=== PATIENT | male | born 1975 | race Caucasian/White ===

== ENCOUNTER 2017-01-19 15:39 | Emergency (ER) | payer MEDICAID, OTHER ==
[~2017-01-19] VITALS: Ht 172.7 cm; Wt 129.3 kg
[~2017-01-19 15:39] MED LIST: /CELE20CA OR; /WARF25TA OR; ACET65TA OR; CIPR500T89 PO; FLAG500T PO; METH2.5TA PO; PERC5TAB8 OR; PRED10TA PO
[2017-01-19] MEDS ORDERED: CALC600T6 PO (16:10)
[2017-01-19] MEDS ORDERED: LEFL1TAB4 PO (16:10)
[2017-01-19] MEDS ORDERED: BUPR75TA5 PO (16:10)
[2017-01-19] MEDS ORDERED: PRED5TA PO (16:10)
[2017-01-19] MEDS ORDERED: OMEP20CA3 PO (16:10)
[2017-01-19] MEDS ORDERED: FOLI1TAB2 PO (16:10)
[2017-01-19] MEDS ORDERED: CLINDAMYCIN 150 MG CAP PO ONE (16:45)
[2017-01-19 17:06] LABS: BASO % 0.5 % (0.0-1.0); EOS # 0.4 K/mm3 (0.0-0.50); EOS % 3.6 % (0.0-3.0); LARGE UNSTAINED CELL # 0.1 K/mm3 (0.0-0.4); LARGE UNSTAINED CELL % 1.4 % (0.0-4.0); LYMPH # 1.6 K/mm3 (1.5-4.5); LYMPH % 14.2 % (24.0-44.0); MEAN CORPUSCULAR HEMOGLOBIN 30.1 pg (27.0-33.0); MEAN CORPUSCULAR HGB CONC 35.1 g/dl (32.0-36.5); MEAN CORPUSCULAR VOLUME 85.6 fl (80.0-96.0); MONO # 0.5 K/mm3 (0.0-0.8); MONO % 4.6 % (0.0-5.0); NEUTROPHILS # 8.1 K/mm3 (1.8-7.7); NEUTROPHILS % 75.7 % (36.0-66.0); PLATELET COUNT, AUTOMATED 165 k/mm3 (150-450); RED CELL DISTRIBUTION WIDTH 13.7 % (11.5-14.5); WHITE BLOOD COUNT 10.6 K/mm3 (4.0-10.0)
[2017-01-19 17:12] LABS: INR 0.99
[2017-01-19 17:26] LABS: ANION GAP 7 MEQ/L (8-16); BLOOD UREA NITROGEN 9 MG/DL (7-18); CALCIUM LEVEL 8.2 MG/DL (8.5-10.1); CARBON DIOXIDE LEVEL 25 MEQ/L (21-32); CHLORIDE LEVEL 110 MEQ/L (98-107); CREATININE FOR GFR 0.87 MG/DL (0.70-1.30); GLOMERULAR FILTRATION RATE > 60.0 (>60); GLUCOSE, FASTING 86 MG/DL (70-105); POTASSIUM SERUM 3.8 MEQ/L (3.5-5.1); SODIUM LEVEL 142 MEQ/L (136-145)
[2017-01-19] MEDS ORDERED: CLEO300C2 PO (17:37)
[2017-01-19 17:48] VITALS: BP 147/98
--- NOTE | 2017-01-19 18:00 | REP ---
LEFT LOWER EXTREMITY DUPLEX VEINS: HISTORY: Swelling. There are no filling defects in the deep venous system. The deep venous system is patent. IMPRESSION: There is no deep venous thrombosis. Signed by Kirt Grover MD 01/19/2017 06:50 P
== END 2017-01-19 17:50 | disposition home or self-care (01) ==
LOC: M ED 16:31
DX: I73.9 Peripheral vascular disease, unspecified (principal); I87.8 Other specified disorders of veins; L03.116 Cellulitis of left lower limb

== ENCOUNTER 2018-02-18 23:43 | Emergency (ER) | payer OTHER ==
[2018-02-19 01:52] LABS: CARBOXYHEMOGLOBIN 3.2 % (0.0-1.5)
[2018-02-19 01:52] LABS: BASO % 0.2 % (0.0-1.0); EOS % 0.1 % (0.0-3.0); HEMATOCRIT 48.3 % (42.0-52.0); HEMOGLOBIN 16.3 g/dl (13.5-17.5); IMMATURE GRANULOCYTE % 0.4 % (0-3.0); LYMPH # 0.8 10^3/uL (1.5-4.5); LYMPH % 5.7 % (24.0-44.0); MEAN CORPUSCULAR HEMOGLOBIN 29.8 pg (27.0-33.0); MEAN CORPUSCULAR HGB CONC 33.7 g/dl (32.0-36.5); MEAN CORPUSCULAR VOLUME 88.3 fl (80.0-96.0); MONO # 0.6 10^3/uL (0.0-0.8); MONO % 4.4 % (0.0-5.0); NEUTROPHILS # 12.2 10^3/uL (1.8-7.7); NEUTROPHILS % 89.2 % (36.0-66.0); PLATELET COUNT, AUTOMATED 150 10^3/uL (150-450); RED BLOOD COUNT 5.47 10^6/uL (4.30-6.10); RED CELL DISTRIBUTION WIDTH 13.4 % (11.5-14.5); WHITE BLOOD COUNT 13.7 10^3/uL (4.0-10.0)
[2018-02-19 02:12] LABS: ANION GAP 8 MEQ/L (8-16); BLOOD UREA NITROGEN 11 MG/DL (7-18); CALCIUM LEVEL 8.6 MG/DL (8.5-10.1); CARBON DIOXIDE LEVEL 26 MEQ/L (21-32); CHLORIDE LEVEL 109 MEQ/L (98-107); CREATININE FOR GFR 1.03 MG/DL (0.70-1.30); GLOMERULAR FILTRATION RATE > 60.0 (>60); GLUCOSE, FASTING 105 MG/DL (70-100); POTASSIUM SERUM 4.3 MEQ/L (3.5-5.1); SODIUM LEVEL 143 MEQ/L (136-145)
[2018-02-19] MEDS: MORPHINE 2 MG/ML 1ML SYRINGE (J2270) IV (02:15)
[2018-02-19 02:22] LABS: ERYTHROCYTE SEDIMENTATION RATE 5 mm/hr (0-15)
[2018-02-19] MEDS: HYDROmorphone HCL 1 MG/ML SYRINGE (J1170) IV ×2 (04:50→06:24)
[2018-02-19 05:38] LABS: CSF TUBE# GLU TUBE 3; CSF TUBE# TP TUBE 3; GLUCOSE CSF 69 MG/DL (40-75); TOTAL PROTEIN,CSF 69.2 MG/DL (15-45)
[2018-02-19] MEDS: KETOROLAC 30 MG/ML VIAL (J1885) IV (05:42)
[2018-02-19 05:46] LABS: CSF RBC < 2 10^3/uL (<2)
[2018-02-19 05:47] LABS: APPEARANCE, CSF CLEAR (CLEAR); COLOR, CSF COLORLESS (COLORLESS); CSF DIFF IF INDICATED? NO (NO); CSF TUBE# CELL CNT TUBE 1; CSF WBC 2 /uL (0-10)
[2018-02-19 05:48] LABS: APPEARANCE, CSF CLEAR (CLEAR); COLOR, CSF COLORLESS (COLORLESS); CSF DIFF IF INDICATED? NO (NO); CSF RBC < 2 10^3/uL (<2); CSF TUBE# CELL CNT TUBE 1; CSF WBC 1 /uL (0-10)
[2018-02-19] MEDS: AMPICILLIN SOD/SULBACTAM SOD 3 GM in D5W MINI-BAG PLUS 100 ML IV (06:30)
== END 2018-02-19 07:12 | disposition home or self-care (01) ==
LOC: M ED 23:43
DX: G43.909 Migraine, unspecified, not intractable, without status migrainosus (principal); L03.115 Cellulitis of right lower limb; M06.9 Rheumatoid arthritis, unspecified; G89.29 Other chronic pain; F43.21 Adjustment disorder with depressed mood; Z79.899 Other long term (current) drug therapy
CPT/HCPCS: J1170

== ENCOUNTER 2021-07-09 00:08 | Emergency (ER) | payer OTHER, SELFPAY ==
[~2021-07-09] VITALS: Ht 175.3 cm; Wt 127.3 kg
[~2021-07-09 00:08] MED LIST changes: -/CELE20CA OR; -/WARF25TA OR; +AMIT10TA7; +AUGM500T34 PO; +BUPR75TA5 PO; +CALC600T17 PO; +CELE1CAP4 OR; +CIPR-249 PO; -CIPR500T89 PO; +CLEO300C2 PO; +COUM1TAB18 OR; +FOLI1TAB11 PO; +HUMI40KI; +LEFL1TAB4 PO; +METH2.5T48 PO; -METH2.5TA PO; +OMEP1CAP73 PO; +PRED-351 PO; -PRED10TA PO; +PRED5TA PO; +SUMA5SPR
--- OUTSIDE RECORDS SUMMARY | 2021-07-09 00:18 | CCD | Clinical Summary ---
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 ;; 05/07 good this visit and last;; will observe Depression 06/30/2017 - 12:00AM Camilo Broderick MD Act siria Note: Greiving the loss of h is pre disease life of productive activity but increasingly coming to terms with his limitations and adapting to enjoying life with much more limited physical capacity. Admits to 'black thoughts' but decreasingly and better able to control and stay ahead of them.;; 08/06 gradually improving- good wt loss - got a puppy which is a huge challenge but turning out positive. Encouraged to get YouTube presence going to share his struggles and humor with others who could benefit. Rheumatoid Arthritis 06/09/2016 - 12:00AM Camilo ko MD Active Note: did great until 2007- [employer], travel, jogging and soccer;;; then developed pain in hips and surgery left 2011;; dx 2013 [facility] rheumatology but poor progress so gave up after cortisone injections, orthotics made, multiple meds; most recently methotrexate stopped changed to ARAVA (leflunamide) today at dr manzano due to headache and ? contributed to diverticulitis and didnt work well. 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 ;;; 09/20/16 dr vale [facility] eval severe progressive rheumatoid arthritis in patient previously healthy, athletic, and productive who has tried extremely hard to stay as functional as possible but is failing and the disease is progressing with increasing pain and decreasing function. P: handicapped parking tag initiated;; refer to another [employer] airspace control officer as not feeling supported or understood in current setting. ;; walks very stiffly, cannot reach hair or face with hands due to joint stiffness; left (dominant) hand function very limited by stiffness and pain in wrist and elbow. Function form done for SSD application- unable to use cane due to poor hand function and has fallen multiple times on minor unevenness eg a fold in a towel on the floor. Person who lives with him does all the shopping and cooking and even feeds him and brushes teeth as cant reach his mouth or wipe his own bottom after bowel movement. 11/09/16 Slowly progressive disease and decreaosing function. Form done today for disability- focussed on fibrmyalgia issues though that is really a minor part of his symptom complex. The worst of it continues to be joint stiffness and pain such that he is very clearly permanently disabled from any productive employment. Referral in [place] to another [employer] airspace control officer didnt work out apparently for insurance reasons so will try for buddy fuentes which will be much closer for him as well. [address] veloz. We are looking into genetics eval at [facility] as 35 yo autistic sister just had high methylmalonic acid level with normal b12 though she had developmental w/u in the past at age 1 at [facility]. 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 Mom notes that dad was spraying atrazine for [employer] at the time Quevedo two younger siblings were conceived though not when he was.;; 12/20/16 some better lately; on bupropion plus leflunimide and 15 mg/day prednisone. P: add naproxen 250 mg twice daily. 04/05 Joints are still causing a lot of pain. He takes 15 mg of prednisone daily, down from 20mg. Occassionally takes naproxen 250mg, but it does not help much. Movement is restricted due to joint pain. Has not seen rheumotologist since june 2016, would like to change which one he is seeing. 06/29/17 pain and joint restrictions continue;; has finally gotten a rheumatology appt though not for 4 months. Joined a gym to maximize exercise but walking on treadmill caused gastrocnemius tear since his normal gait off treadmill is shuffling and necessar rajat involves less range of motion. He can resume but take care to go VERY slowly and gently with everything. Weight not coming down on prednisone and limited activity despite trying really hard. Encouraged to focus on function and actvity and avoid gaining weight but not expect himself to also diet and lose weight for now. Continue to use the lowest effective prednisone dose. Flu shot today despite being on some prednisone.;; 01/16/18 has had 2 huimira shots now plue still on leflunamide and 15 mg prednisone. Excellent diet and gardening; much better mental health and wt loss continues. 05/01/18 Pain has been worse in the last month. Now having pain in his neck and down between his shoulders. Right thumb is also locking up and causing him to drop things frequently. Sees rhuematology in a couple of weeks to discuss changes in medication.;; 08/07/18 still bad - agrees to keep rheumatology appts as med change may be helpful at some point. [facility] may be a good primary care approach after February when I retire. ;;; 01/05 Reports shooting pains in right fingers that mimick neuropathic pain felt after hip surgery in the past - likely RA related. Still following rheumatology for medication management. May opt [facility] after I retire. Past Visits Onset Date - Time Resolved Date - Time Provider Co ndition Status Migraine Headache 12/20/2016 - 12:00AM Camilo Sanchez Active Note: avoiding caffeine well already;; try naproxen 250 mg bid for headache;; monosodium glutamate is another possible trigger. Watch for other triggers and minimize stress as that is also a trigger. 04/05 Has had some "bad ones" this month. More days in a month where head hurts than when it doesn't. Migraines first started in 1997, but these headaches are not the same as those headaches. These do make him nauseas, vomit. He does experience photophobia and osmophobia. Prefers a dark and cold space to recover. Never tried any preventive medicine or triptans. Neck and back feel very tight constantly. Pt: we will prescribe Amitriptyline 10mg once daily to start as well as sumatriptan prn ;;; 01/16/18 still 1 to 4 with vomiting lasting 18 hrs despite amitriptyline; sumatriptan not helping;; P: riboflavin 100 mg daily;; try theracane to self massage trigger points in neck, ;; 05/01/18 also on magnesium- neuro referral as still severe and frequent headaches. Plan of Treatment Care Programs Case Management Cardiovascular / Respiratory Future Appointments Date Time Location Provider Medication Follow-up 07/08/2021 10:30AM [facility] Vale Ibrahim NP H Adult Prophy 10/26/2021 2:45PM [facility] Erin jefferson [facility] Future Tests Order Diagnosis Results Due Ordering Provid er Care Management Care Mgmt: Hypertension Essential (primary) hype rtension 02/18/21 Vale Ibrahim NP [id number] - *Revisit Acute Acute Follow-up [facility] Major depressive disorder, single episode, unspecified 05/27/21 Vale Ibrahim IRRIGATION SUPERVISOR Visit Summary - Standard Visit Visit Summary Standard Visi t Major depressive disorder, single episode, unspecified 05/27/21 Vale Ibrahim NP - Instructions for patient - Return to the clinic if condition wors ens or new symptoms arise - Follow-up visit Assessments Includes: Assessments from this encounter - Hypertension - Rheumatoid arthritis - Depression - Generalized anxiety disorder See updated problem list for history/discussion/assessment and plan for today's problems. See also health tab and appropriate flow sheets. Instructions Includes: Instructions from this encounter Instructions to patient Instructions for patient Education and Decision Aids were provide d during visit for: Patient appeared to understand therapeut ic regimen Medical Equipment - Implanted Devices Includes: Current DevicesNo Medical Equipment Recorded Medications Includes: Medications discussed during this encounter and other current Medicati ons Discontinued / Stopped on this date Vale Ibrahim NP on 02/18/2021 Amitriptyline HCl 10 MG Oral Tablet Prov ider: Vale Ibrahim NP Diagnosis: Migraine w/o aura, n ot intractable, w/o status migrainosus Losartan Potassium 50 MG Oral Tablet Pro vider: Vale Ibrahim NP Diagnosis: Essential (primary) hypertension New / Renewed during this visit Vale quintero NP on 05/27/2021 Losartan Potassium 100 MG Oral Tablet Pr ovider: Vale Ibrahim NP 30 day supply: 30 tablet, 5 refills Diagnosis: Ess ential (primary) hypertension once a day- dose increased Pharmacy: [id number] - [id number] , [facility], [id number] hydrOXYzine HCl 25 MG Oral Tablet Provid er: Vale Ibrahim NP 30 day supply: 120 tablet, 1 refills Diagnosis: Ge neralized anxiety disorder as directed 1-2 tabs every 4-6 hours as needed Pharmacy: [id number] - [id number] , [facility], [id number] - DULoxetine HCl 30 MG Oral Capsule Delayed Release Particles Provider: Vale Ibrahim NP 30 day supply: 30 capsule, 5 refills Diagnosis: [place] depressive disorder, single episode, unspecified once a day Pharmacy: [facility] - [id number] , [facility], [id number] - Current Medications (continue as prescribed) buPROPion HCl 75 MG Oral Tablet 05/05/2021 Provider : Vale Ibrahim NP Diagnosis: Major depressive dis order, single episode, unspecified twice a day predniSONE 5 MG Oral Tablet 04/20/2021 Provider: Vale Ibrahim NP Diagnosis: Rheu arthritis w rhe u factor of l wrist w/o org/sys involv 3 once a day Riboflavin 100 MG Oral Capsule 02/16/2020 Provider: Vale Ibrahim NP Diagnosis: Migraine w/o aura, n ot intractable, w/o status migrainosus once a day Caltrate 600+D3 Soft 600-800 MG-UNIT Oral Tablet Chewable Provider: Vale Ibrahim NP Diagnosis: once daily Folic Acid 1MG Oral Tablet 12/11/2018 Provider: Camilo Broderick MD Diagnosis: Rheu arthritis w rhe u factor mult site w/o org/sys involv once a day Leflunomide 20MG Oral Tablet 05/01/2018 Provider: Camilo Broderick MD Diagnosis: Rheu arthritis w rhe u factor mult site w/o org/sys involv once a day Naproxen 250MG Oral Tablet 12/20/2016 Provider: Camilo Broderick MD Diagnosis: Rheu arthritis w rhe u factor of l wrist w/o org/sys involv twice a day 1 tab po BID PRN pain - azeem e with food avoid if stomach irritation;; take omeprazole daily before food Medications Administered Includes: Administered Medications from this encounterNo Administered Medications Recorded Vital Signs Includes: Vital Signs from this encounter Vital Name 05/27/2021 05:12P 05/27/2021 04:05P Blood Pressure Sitting L 146/90 158/88 BP Cuff Size Large Pulse Rate-Sitting (bpm) 81 Pulse Rhythm Regular Respiration Rate (breaths/min) 18 Temp-Temporal 97.2 Weight (lb) 283 Oxygen Saturation (%) 98 Results Includes: Results discussed during this encounterNo Results Recorded For Specified Dates History of Present Illness Includes: History of Present Illness from this encounter Eriberto Augustine is a 46 year old male. - Allergy list reviewed - Medication reconciliation performed - Medication list reviewed with patient and updated in EMR - No headache - No epistaxis - No chest pain or discomfort - No dyspnea - Dizziness only when really tired - No sleep disturbances - - No request for consultation by special ist - Compliance with treatment - No previous emergency room visit Eriberto is a 46-year-old male presenting to the office today for a follow-up on his chronic conditions. He reports that today, his chronic rheumatoid pain is at its baseline- denies an active flare. He reports his pain today is primarily stemming from a throbbing, frontal headache. He has a history of migraines and reports this is not migraine in nature. He typically just uses temporal massages, cool washcloths, and dark rooms to alleviate headaches, which is his plan for this headache. Eriberto reports that his anxiety is at the point where he admits he needs help. He reports he feels anxious all the time- constantly clenching jaw/whole body and is not sleeping well. He constantly has financial worries and feels guilty that he feels so down about his life/chronic pain. He does not want to be a burden to his family and thinks about this all the time; he also admits to thinking about his "past life" where he was a very active man in the . He denies SI and HI. He has a supportive significant other with him today. Based on an extensive conversation with Eriberto, it is clear that his anxiety is significantly impacting his quality of life and he would like to seek pharmacological help- has not had good success with mental health counselors due to being private and does not wish to go down that route at this time. Plan to start hydroxyzine PRN, which will help with altered sleep and anxiety. Eriberto confirmed he stopped taking amitriptyline because it "did nothing." Plan to st art duloxetine since it helps with anxiety/ depression as well as chronic pain. Eriberto is agreeable to this plan and is very hopeful that it will help improve his quality of life. Eriberto's BP in office today is elevated. His at-home BP log shows SBP consistently in 150s/160s and elevate DBP. WIll increase amlodipine (he denies adverse side effects with this new medication). Hopeful that if we can better manage his anxiety and chronic pain, BP will subsequently improve. Eriberto denies chest pain/pressure/squeezing/tightness/palpitations. He denies SOB. Denies N/V/D, heartburn, black/bloody stools. Will see back for follow-up in 4-6 weeks, sooner if needed. Total time spent on patient encounter: 45+ minutes Social History Description Last Updated No secondhand cigarette smoke exposure 05/27/2021 Smoking status 05/27/2021 : Former smoker 05/27/2021 Procedures and Surgical History Includes: Procedures from this encounter Procedures Code Diagnosis Performing Provider Service Location Service Date continue current medication except where otherwise no dain medical regimen review Clinical summary provided to patient Clinical summary provided to patient Summary provided electronically in CCDA format & reasonable certainty of receipt Surgical History Last Updated History of orthopedic surgery left hip replacement 05/27/2021 Medical History Includes: Medical History addressed during this encounterNo Medical History Recorded Family History Includes: Family History addressed during this encounter Description Last Updated Family history of cancer No family history of colon o r prostate cancer 05/27/2021 Review of Systems Includes: Review of Systems from this encounter Systemic: Not feeling poorly (malaise). No fever, no chills, and no night sweats. Head: No headache and no sinus pain. Neck: No neck pain. Eyes: No vision problems. Otolaryngeal: No earache, no nasal discharge, and no hoarseness. Cardiovascular: No chest pain or discomfort, no palpitations, and the heart rate was not fast. Pulmonary: No dyspnea, not during exertion, and not nocturnal; causing awakening from sleep. No cough, no hemoptysis, and no wheezing. Gastrointestinal: Normal appetite and no heartburn. No nausea, no vomiting, no abdominal pain, and no melena. No diarrhea. Genitourinary: No dysuria. Endocrine: No excessive sweating. Musculoskeletal: As a chronic condition. Neurological: No dizziness and no motor disturbances. Psychological: Anxiety, depression, and sleep disturbances. Skin: No rash. Mental Status Includes: Mental Status from this encounter Description Oriented to time, place, and person Anxiety Depression Functional Status Includes: Functional Status from this encounterNo Functional Status Recorded Physical Exam Includes: Physical Exam from this encounter Skin: -the skin color and pigmentation were normal -the skin general appearance was normal Eyes: -the conjunctiva exhibited no abnormalities -the extraocular movements were normal Ears, Nose, Throat: -no external nose deformities -no nasal discharge seen -the oropharynx was normal Neck: -the neck demonstrated no decrease in suppleness -the thyroid showed no abnormalities -no cervical mass was seen -No carotid bruits Lymph Nodes: -the supraclavicular lymph nodes were not enlarged -no adenopathy Lungs: -normal breath sounds/voice sounds -no wheezing was heard -no rhonchi were heard -no rales/crackles were heard Cardiovascular System: -no murmurs were heard -no pitting edema -heart rate and rhythm normal -no bradycardia present -no tachycardia present Abdomen: -the bowel sounds were normal -abdominal non-tender Psychiatric Exam: -the affect was normal Head: -no evidence of a head injury -the head was normocephalic Neurological System: -oriented to time, place, and person -oriented to time, place, and person General Status: -in no acute distress -well developed -well nourished Musculoskeletal System: -overall findings were normal Vital Signs: -current vital signs reviewed Immunizations Includes: Immunizations addressed during this encounterNo Immunizations Recorded Allergies Includes: Active AllergiesNo Known Allergies Encounters Encounter Provider Location Date Check-In Time Check-Out Time D iagnosis Chronic Disease Follow-up Vale Ibrahim IRRIGATION SUPERVISOR [facility] 05/27/2021 3:49PM 5:17PM Generalized Anxiety Disorder, Depression , Hypertension (Systemic), Rheumatoid Arthritis Insurance Includes: Active Insurance Policies Plan Name Member ID Group # Subscriber Relationship Effective Da wang 1 - Medicare Blue Ppo[ Advantage Medicare] [id number] Ri zackery Hazard Self 03/20/2019 - Unknown 2 - D [employer] Bc/bs [id number] Eriberto Augustine Self Advance Directives Includes: Current Advance Directives Directive Pat Aware Third Democrat Effective Date Reviewed Status RHIO Yes 06/05/2016 Current and Ve rified Note: Yes Ebola Screening Performed Yes 10/28/2019 Current and Verified Note: Within the last month, have you traveled outside of the [place]? - NO packet given Pt Bill of Rights, Priv Prac, Ad Dir Yes 09/17/2020 Current and Verified Note: Pt declined AD packet Health Concerns Includes: Health Concerns for current assessments Depression Onset 06/30/2017 Hypertension (systemic) Onset 11/22/2017 Rheumatoid Arthritis Onset 06/09/2016 Goals Includes: Active Goals for current assessments Goal for Rheumatoid Arthritis Added 06/09/2016 by Provider Health Concern: Rheumatoid Arthritis Goal for Depression Added 06/30/2017 by Provider Health Concern: Depression Goal for Hypertension (systemic) Added 11/22/2017 by Provider Health Concern: Hypertension (systemic) Interventions Includes: Interventions for current assessments did great until 2007- [employer], travel, jogg ing and soccer;;; then developed pain in hips and surgery left 2011;; dx 2012 [facility] rheumatology but poor progress so gave up after cortisone injections, orthotics made, multiple meds; most recently methotrexate stopped changed to ARAVA (leflunamide) today at dr manzano due to headache and ? contributed to diverticulitis and didnt work well. Prednisone 15 mg daily continues down from 20 due to methotrexate total now for 6 months now P; recheck in 3mo;; Worked as [employer] and loved it and did well except advancing pain so had to take leave of absence which conitnues now.09/20/16 dr [facility]e [facility] mike severe progressive rheumatoid arthritis in patient previously healthy, athletic, and productive who has tried extremely hard to stay as functional as possible but is failing and the disease is progressing with increasing pain and decreasing function. P: handicapped parking tag initiated;; refer to another [employer] airspace control officer as not feeling supported or understood in current setting.11/09/16 Slowly progressive disease and decreaosing function. Form done today for disability- focussed on fibrmyalgia issues though that is really a minor part of his symptom complex. The worst of it continues to be joint stiffness and pain such that he is very clearly permanently disabled from any productive employment. Referral in to another [employer] airspace control officer didnt work out apparently for insurance reasons so will try for [employer] which will be much closer for him as well. [address] veloz. We are looking into genetics eval at [facility] as 35 yo autistic sister just had high methylmalonic acid level with normal b12 though she had developmental w/u in the past at age 1 at [facility]. 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 Mom notes that dad was spraying atrazine for [employer] at the time Quevedo two younger siblings were conceived though not when he was. 12/20/16 some better lately; on bupropion plus leflunimide and 15 mg/day prednisone. P: add naproxen 250 mg twice daily.04/05 Joints are still causing a lot of pain. He takes 15 mg of prednisone daily, down from 20mg. Occassionally takes naproxen 250mg, but it does not help much. Movement is restricted due to joint pain. Has not seen rheumotologist since june 2016, would like to change which one he is seeing. 06/29/17 pain and joint restrictions continue;; has finally gotten a rheumatology appt though not for 4 months. Joined a gym to maximize exercise but walking on treadmill caused gastrocnemius tear since his normal gait off treadmill is shuffling and necessarily involves less range of motion. He can resume but take care to go VERY slowly and gently with everything. Weight not coming down on prednisone and limited activity despite trying really hard. Encouraged to focus on function and actvity and avoid gaining weight but not expect himself to also diet and lose weight for now. Continue to use the lowest effective prednisone dose. Flu shot today despite being on some prednisone.;; 01/16/18 has had 2 huimira shots now plue still on leflunamide and 15 mg prednisone. Excellent diet and gardening; much better mental health and wt loss continues.08/07/18 still bad - agrees to keep rheumatology appts as med change may be helpful at some point. [facility] care approach after February when I retire. Added 06/09/2016 Goal: Goal for Rheumatoid Arthritis 01/05 Reports shooting pains in right fin gers that mimic neuropathic pain felt after hip surgery in the past - likely RA related. Still following rheumatology for medication management. May opt [facility] after I [facility]. Added 12/27/2018 Goal: Goal for Rheumatoid Arthritis 08/06 gradually improving- good wt loss - got a puppy which is a huge challenge but turning out positive. Encouraged to get YouTube presence going to share his struggles and humor with others who could benefit. Added 06/30/2017 Goal: Goal for Depression Per Undiagnosed HTN Screening patient wa s identified with 2 or more elevated BP's. ;; 05/07 good this visit and last;; will observe Added 11/22/2017 Goal: Goal for Hypertension (systemic) Evaluations & Outcomes Includes: Evaluations & Outcomes for current assessments Goal converted from Patient Problem data . Goal is currently In Progress. Added 06/09/2016 - In Progress Goal: Goal for Rheumatoid Arthritis Goal converted from Patient Problem data . Goal is currently In Progress. Added 06/30/2017 - In Progress Goal: Goal for Depression Goal converted from Patient Problem data . Goal is currently In Progress. Added 11/22/2017 - In Progress Goal: Goal for Hypertension (systemic)
[2021-07-09] MEDS ORDERED: LOSA100T50 PO (00:36)
[2021-07-09] MEDS ORDERED: CYMB60CA4 PO (00:37)
[2021-07-09] MEDS ORDERED: EXCETAB33 PO (00:39)
[2021-07-09] MEDS ORDERED: LOSA50TA88 PO (00:45)
[2021-07-09] MEDS ORDERED: DULO1CAP5 PO (00:45)
[2021-07-09] MEDS ORDERED: LISI20TA35 PO (00:45)
[2021-07-09] MEDS ORDERED: HALOPERIDOL 5MG/ML VIAL (J1630 PER 1) IV ONE (05:30)
[2021-07-09] MEDS ORDERED: KETOROLAC 30 MG/ML 1ML VIAL IV ONE (05:30)
[2021-07-09 06:10] LABS: BASO # 0.1 10^3/uL (0.0-0.2); BASO % 0.6 % (0.0-1.0); EOS # 0.1 10^3/uL (0.0-0.5); EOS % 1.4 % (0.0-3.0); HEMATOCRIT 49.4 % (42.0-52.0); HEMOGLOBIN 16.3 g/dl (13.5-17.5); LYMPH # 1.8 10^3/uL (1.5-5.0); LYMPH % 18.8 % (24.0-44.0); MEAN CORPUSCULAR HEMOGLOBIN 28.3 pg (27.0-33.0); MEAN CORPUSCULAR VOLUME 85.9 fl (80.0-96.0); MONO # 0.6 10^3/uL (0.0-0.8); MONO % 6.2 % (2.0-8.0); NEUTROPHILS # 6.8 10^3/uL (1.5-8.5); NEUTROPHILS % 71.8 % (36.0-66.0); PLATELET COUNT, AUTOMATED 203 10^3/uL (150-450); RED BLOOD COUNT 5.75 10^6/uL (4.30-6.10); WHITE BLOOD COUNT 9.4 10^3/uL (4.0-10.0)
--- NOTE | 2021-07-09 06:32 | REPVR ---
PROCEDURE INFORMATION: Exam: CT Head Without Contrast Exam date and time: 07/09/2021 6:02 AM Age: 46 years old Clinical indication: Pain; Headache; Migraine; Additional info: Complex migraine TECHNIQUE: Imaging protocol: Computed tomography of the head without contrast. Radiation optimization: All CT scans at this facility use at least one of these dose optimization techniques: automated exposure control; mA and/or kV adjustment per patient size (includes targeted exams where dose is matched to clinical indication); or iterative reconstruction. COMPARISON: 1. CT Head without contrast 2018-02-19 01:[address] Head without contrast 2016-04-23 01:25 FINDINGS: Brain: Normal. No hemorrhage. Unremarkable white matter. No mass effect. Cerebral ventricles: No ventriculomegaly. Paranasal sinuses: Visualized sinuses are unremarkable. No fluid levels. Mastoid air cells: Visualized mastoid air cells are well aerated. Bones/joints: Unremarkable. No acute fracture. Soft tissues: Unremarkable. IMPRESSION: No acute intracranial abnormality. Electronically signed by: Ulises Lowe On 07/09/2021 06:31:31 AM
--- NOTE | 2021-07-09 06:33 | REPVR ---
PROCEDURE INFORMATION: Exam: CT Cervical Spine Without Contrast Exam date and time: 07/09/2021 6:02 AM Age: 46 years old Clinical indication: Radicular pain (radiculopathy); Cervical region; Additional info: Complex migraine right cervical radiculopathy TECHNIQUE: Imaging protocol: Computed tomography images of the cervical spine without contrast. Radiation optimization: All CT scans at this facility use at least one of these dose optimization techniques: automated exposure control; mA and/or kV adjustment per patient size (includes targeted exams where dose is matched to clinical indication); or iterative reconstruction. COMPARISON: 1. CR Spine, Cervical 2015-09-27 18:[address] Head without contrast 2018-02-19 01:51 FINDINGS: Bones/joints: Minimal C5-C6 anterolisthesis. No acute vertebral fracture/subluxation. Discs/Spinal canal/Neural foramina: No significant disc protrusion. No severe spinal canal stenosis. No significant neural foraminal narrowing. Lungs: Lung apices are normal. Soft tissues: Unremarkable. IMPRESSION: No acute vertebral fracture/subluxation. Electronically signed by: Ulises Lowe On 07/09/2021 06:33:02 AM
[2021-07-09 06:35] LABS: BLOOD UREA NITROGEN 9 MG/DL (7-18); CALCIUM LEVEL 8.8 MG/DL (8.5-10.1); CARBON DIOXIDE LEVEL 29 MEQ/L (21-32); CHLORIDE LEVEL 111 MEQ/L (98-107); CREATININE FOR GFR 1.06 MG/DL (0.70-1.30); GLOMERULAR FILTRATION RATE > 60.0 (>60); GLUCOSE, FASTING 103 MG/DL (70-100); MAGNESIUM LEVEL 2.4 MG/DL (1.8-2.4); POTASSIUM SERUM 3.9 MEQ/L (3.5-5.1); SODIUM LEVEL 144 MEQ/L (136-145)
[2021-07-09] MEDS ORDERED: diazePAM 10MG/2ML SYRINGE (J3360 PER 5MG) IV ONE (07:25)
[2021-07-09 08:30] VITALS: BP 162/96
== END 2021-07-09 09:15 | disposition home or self-care (01) ==
LOC: M ED 00:08
DX: G43.909 Migraine, unspecified, not intractable, without status migrainosus (principal); I10 Essential (primary) hypertension; M06.9 Rheumatoid arthritis, unspecified; Z79.899 Other long term (current) drug therapy; Z79.82 Long term (current) use of aspirin
CPT/HCPCS: 70450; 72125; 80048; 83735; 85025; 96374; 96375; 99284; J1630; J1885; J3360

== ENCOUNTER 2023-04-04 09:43 | Day surgery (SDC) | payer MEDICARE ==
[~2023-04-04] VITALS: Ht 172.7 cm; Wt 145.0 kg
[~2023-04-04 09:43] MED LIST changes: +CYMB60CA4 PO; +DULO1CAP5 PO; +EXCETAB32 PO; +LISI20TA35 PO; +LOSA100T46 PO; +LOSA50TA28 PO; +METO1TAB7 PO; +NS 1,000 ML IV ONE; -SUMA5SPR; +SUMA5SPR3
[2023-04-04] MEDS ORDERED: propofoL 200 MG/20 ML VIAL As Ordered ONE ×2 (11:06→11:14)
[2023-04-04 14:25] VITALS: BP 110/67; TEMP 97.8; O2SAT 97
== END 2023-04-04 12:10 | disposition home or self-care (01) ==
LOC: M OPP 09:43
PROVIDERS: ATTEND Internal Medicine Gastroenterology
DX: Z12.11 Encounter for screening for malignant neoplasm of colon (principal); K64.0 First degree hemorrhoids; K57.30 Diverticulosis of large intestine without perforation or abscess without bleeding; Z87.891 Personal history of nicotine dependence; Z79.52 Long term (current) use of systemic steroids; Z79.899 Other long term (current) drug therapy

== ENCOUNTER → 2023-11-13 | Outpatient (REF) | payer MEDICARE ==
[~2023-11-13] MED LIST changes: -LEFL1TAB4 PO; +LEFL20TA15 PO; -NS 1,000 ML IV ONE
[2023-11-13 17:18] LABS: BASO # 0.1 10^3/uL (0.0-0.2); BASO % 0.7 % (0.0-1.0); EOS # 0.7 10^3/uL (0.0-0.5); EOS % 5.3 % (0.0-3.0); HEMATOCRIT 46.9 % (42.0-52.0); HEMOGLOBIN 15.7 g/dl (13.5-17.5); LYMPH # 2.3 10^3/uL (1.5-5.0); LYMPH % 17.3 % (24.0-44.0); MEAN CORPUSCULAR HEMOGLOBIN 28.3 pg (27.0-33.0); MEAN CORPUSCULAR HGB CONC 33.5 g/dl (32.0-36.5); MEAN CORPUSCULAR VOLUME 84.7 fl (80.0-96.0); MONO # 0.8 10^3/uL (0.0-0.8); NEUTROPHILS # 9.5 10^3/uL (1.5-8.5); PLATELET COUNT, AUTOMATED 357 10^3/uL (150-450); RED BLOOD COUNT 5.54 10^6/uL (4.30-6.10); WHITE BLOOD COUNT 13.5 10^3/uL (4.0-10.0)
[2023-11-13 17:39] LABS: ERYTHROCYTE SEDIMENTATION RATE 53 mm/hr (0-20)
[2023-11-13 17:44] LABS: TOTAL PROTEIN,RANDOM URINE 31.2 MG/DL (0.0-14.0)
[2023-11-13 17:54] LABS: ALBUMIN 3.5 G/DL (3.2-5.2); ALKALINE PHOSPHATASE 120 U/L (46-116); ALT/SGPT 13 U/L (7.0-40); AST/SGOT < 8 U/L (<34); BILIRUBIN,TOTAL 0.5 MG/DL (0.3-1.2); BLOOD UREA NITROGEN 12 MG/DL (9-23); CALCIUM LEVEL 8.8 MG/DL (8.5-10.1); CARBON DIOXIDE LEVEL 25 MMOL/L (20-31); CHLORIDE LEVEL 111 MMOL/L (98-107); CREATININE FOR GFR 0.91 MG/DL (0.70-1.30); GLOMERULAR FILTRATION RATE > 60.0 (>56); GLUCOSE, FASTING 96 MG/DL (60-100); POTASSIUM SERUM 4.4 MMOL/L (3.5-5.1); SODIUM LEVEL 140 MMOL/L (136-145); TOTAL PROTEIN 7.3 G/DL (5.7-8.2)
[2023-11-13 17:55] LABS: COMPLEMENT C3 185.6 MG/DL (90.0-170.0); COMPLEMENT C4 37.5 MG/DL (12-36); IMMUNOGLOBULIN G 2046 MG/DL (650-1600)
[2023-11-13 18:01] LABS: CREATININE,RANDOM URINE 311.1 MG/DL
[2023-11-13 18:19] LABS: AMORPHOUS SEDIMENT LARGE (NEGATIVE); APPEARANCE, URINE TURBID (CLEAR); BACTERIA, URINE AUTO NEGATIVE (NEGATIVE); BILIRUBIN, URINE AUTO 1+ (NEGATIVE); BLOOD, URINE BLOOD 1+ (NEGATIVE); COLOR, URINE AMBER (YELLOW); GLUCOSE, URINE (UA) AUTO NEGATIVE (NEGATIVE); KETONE, URINE AUTO TRACE mg/dL (NEGATIVE); LEUKOCYTE ESTERASE, URINE AUTO TRACE (NEGATIVE); MUCUS, URINE LARGE (NEGATIVE); NITRITE, URINE AUTO NEGATIVE (NEGATIVE); PROTEIN, URINE AUTO 1+ mg/dL (NEGATIVE); RBC, URINE AUTO 31 /HPF (0-3); SPECIFIC GRAVITY URINE AUTO 1.029 (1.002-1.035); SQUAMOUS EPITHELIAL CELL UR AU 0 /HPF (0-6); WBC, URINE AUTO 5 /HPF (0-3)
[2023-11-13 18:21] LABS: HIV 1&2 SCREEN NEGATIVE (NEGATIVE)
[2023-11-13 18:27] LABS: HEPATITIS B CORE ANTIBODY IGM NEGATIVE (NEGATIVE); HEPATITIS C VIRUS ABY INDEX 0.08 INDEX (<0.8)
[2023-11-13 22:03] LABS: IMMUNOGLOBULIN A < 33.0 MG/DL (40-350)
[2023-11-22 14:09] LABS: COMPLEMENT TOTAL (CH50) > 60 U/mL (>41); HLA-B27 Negative (.)
== END ==
LOC: M SFHCRHEU 13:37
PROVIDERS: ATTEND Internal Medicine Rheumatology
DX: M06.09 Rheumatoid arthritis without rheumatoid factor, multiple sites (principal); R76.8 Other specified abnormal immunological findings in serum; Z79.52 Long term (current) use of systemic steroids; R53.83 Other fatigue

== ENCOUNTER → 2023-12-31 | Outpatient (CLI) | payer MEDICARE | LOC: M RAD 07:16 | PROVIDERS: ATTEND Internal Medicine Rheumatology | DX: M06.09 Rheumatoid arthritis without rheumatoid factor, multiple sites (principal); R76.8 Other specified abnormal immunological findings in serum; Z79.52 Long term (current) use of systemic steroids; R53.83 Other fatigue; M19.031 Primary osteoarthritis, right wrist; M19.032 Primary osteoarthritis, left wrist ==

== ENCOUNTER → 2024-02-11 | Outpatient (REF) | payer MEDICARE ==
[~2024-02-11] MED LIST changes: +CHLO125TA PO; +DULO1CAP6; +HYDR-3363; +LOSA100T46; +OMEP-173; +OREN125I2; +SPIR-10 PO
== END ==
LOC: M SFHCRHEU 14:15
PROVIDERS: ATTEND Internal Medicine Rheumatology
DX: M06.09 Rheumatoid arthritis without rheumatoid factor, multiple sites (principal)

== ENCOUNTER 2024-02-14 16:11 | Emergency (ER) | payer MEDICARE ==
[~2024-02-14] VITALS: Ht 175.3 cm; Wt 136.4 kg
[~2024-02-14 16:11] MED LIST changes: -CHLO125TA PO; -DULO1CAP6; -HYDR-3363; -LOSA100T46; -OMEP-173; -OREN125I2; -SPIR-10 PO
[2024-02-14 16:27] VITALS: TEMP 96.4
[2024-02-14] MEDS ORDERED: OMEP-173 (16:30)
[2024-02-14] MEDS ORDERED: OREN125I2 (16:30)
[2024-02-14] MEDS ORDERED: LOSA100T46 (16:30)
[2024-02-14] MEDS ORDERED: DULO1CAP6 (16:30)
[2024-02-14] MEDS ORDERED: HYDR-3363 (16:30)
[2024-02-14 17:12] LABS: BASO # 0.1 10^3/uL (0.0-0.2); BASO % 0.5 % (0.0-1.0); EOS # 0.2 10^3/uL (0.0-0.5); EOS % 1.7 % (0.0-3.0); HEMATOCRIT 46.9 % (42.0-52.0); HEMOGLOBIN 15.2 g/dl (13.5-17.5); LYMPH # 2.5 10^3/uL (1.5-5.0); LYMPH % 20.2 % (24.0-44.0); MEAN CORPUSCULAR HEMOGLOBIN 28.9 pg (27.0-33.0); MEAN CORPUSCULAR HGB CONC 32.4 g/dl (32.0-36.5); MEAN CORPUSCULAR VOLUME 89.2 fl (80.0-96.0); MONO # 0.8 10^3/uL (0.0-0.8); NEUTROPHILS # 8.9 10^3/uL (1.5-8.5); NEUTROPHILS % 70.8 % (36.0-66.0); PLATELET COUNT, AUTOMATED 228 10^3/uL (150-450); RED BLOOD COUNT 5.26 10^6/uL (4.30-6.10); WHITE BLOOD COUNT 12.6 10^3/uL (4.0-10.0)
[2024-02-14 17:40] LABS: ALBUMIN 3.1 G/DL (3.2-5.2); ALKALINE PHOSPHATASE 94 U/L (46-116); ALT/SGPT 16 U/L (7.0-40); AST/SGOT 11 U/L (<34); BILIRUBIN,TOTAL 0.4 MG/DL (0.3-1.2); BLOOD UREA NITROGEN 9 MG/DL (9-23); CALCIUM LEVEL 8.6 MG/DL (8.5-10.1); CARBON DIOXIDE LEVEL 28 MMOL/L (20-31); CHLORIDE LEVEL 108 MMOL/L (98-107); CREATININE FOR GFR 0.89 MG/DL (0.70-1.30); GLOMERULAR FILTRATION RATE > 60.0 (>56); GLUCOSE, FASTING 77 MG/DL (60-100); POTASSIUM SERUM 4.3 MMOL/L (3.5-5.1); SODIUM LEVEL 142 MMOL/L (136-145); TOTAL PROTEIN 6.4 G/DL (5.7-8.2)
[2024-02-14 17:42] LABS: FREE T4 1.06 NG/DL (0.89-1.76); THYROID STIMULATING HORMONE 1.218 uIU/ML (0.55-4.78)
[2024-02-14] MEDS: FUROSEMIDE 40MG/4ML VIAL IV ONE (18:30)
[2024-02-14 19:30] VITALS: O2SAT 98
[2024-02-14 19:31] VITALS: BP 189/110
[2024-02-14] MEDS ORDERED: SPIR-10 PO (19:38)
[2024-02-14] MEDS ORDERED: CHLO125TA PO (19:38)
== END 2024-02-14 19:48 | disposition home or self-care (01) ==
LOC: M ED 16:11 → EDBD 16:11 → M ED 19:48
DX: I10 Essential (primary) hypertension (principal); K57.92 Diverticulitis of intestine, part unspecified, without perforation or abscess without bleeding; F41.9 Anxiety disorder, unspecified; F32.9 Major depressive disorder, single episode, unspecified; Z87.442 Personal history of urinary calculi; F17.200 Nicotine dependence, unspecified, uncomplicated; Z79.82 Long term (current) use of aspirin; Z79.899 Other long term (current) drug therapy
CPT/HCPCS: 36415; 70450; 71045; 80053; 84439; 84443; 85025; 93005; 93041; 96374; 99285; J1940

== ENCOUNTER 2024-11-25 08:40 | Emergency (ER) | payer MEDICARE ==
[~2024-11-25] VITALS: Ht 175.3 cm; Wt 122.7 kg
[~2024-11-25 08:40] MED LIST changes: +CHLO125TA PO; +DULO1CAP6; +HYDR-3363; +LOSA100T46; +OMEP-173; +OREN125I2; +SPIR-10 PO
[2024-11-25] MEDS ORDERED: AMLO1TAB25 PO (09:02)
[2024-11-25] MEDS ORDERED: ROZE8TAB16 PO (09:02)
[2024-11-25 09:35] LABS: BASO % 0.3 % (0.0-1.0); EOS # 0.1 10^3/uL (0.0-0.5); EOS % 0.7 % (0.0-3.0); HEMATOCRIT 43.7 % (42.0-52.0); HEMOGLOBIN 14.8 g/dl (13.5-17.5); LYMPH # 0.8 10^3/uL (1.5-5.0); LYMPH % 7.2 % (24.0-44.0); MEAN CORPUSCULAR HEMOGLOBIN 28.5 pg (27.0-33.0); MEAN CORPUSCULAR HGB CONC 33.9 g/dl (32.0-36.5); MEAN CORPUSCULAR VOLUME 84.2 fl (80.0-96.0); MONO # 0.4 10^3/uL (0.0-0.8); MONO % 3.8 % (2.0-8.0); NEUTROPHILS % 87.3 % (36.0-66.0); PLATELET COUNT, AUTOMATED 183 10^3/uL (150-450); RED BLOOD COUNT 5.19 10^6/uL (4.30-6.10); WHITE BLOOD COUNT 11.5 10^3/uL (4.0-10.0)
[2024-11-25 09:51] LABS: APPEARANCE, URINE CLEAR (CLEAR); BACTERIA, URINE AUTO NEGATIVE (NEGATIVE); BILIRUBIN, URINE AUTO NEGATIVE (NEGATIVE); BLOOD, URINE BLOOD 3+ (NEGATIVE); COLOR, URINE YELLOW (YELLOW); GLUCOSE, URINE (UA) AUTO NEGATIVE (NEGATIVE); KETONE, URINE AUTO NEGATIVE (NEGATIVE); LEUKOCYTE ESTERASE, URINE AUTO NEGATIVE (NEGATIVE); MUCUS, URINE SMALL (NEGATIVE); NITRITE, URINE AUTO NEGATIVE (NEGATIVE); PROTEIN, URINE AUTO NEGATIVE (NEGATIVE); RBC, URINE AUTO TNTC /HPF (0-3); SPECIFIC GRAVITY URINE AUTO 1.019 (1.002-1.035); SQUAMOUS EPITHELIAL CELL UR AU 0 /HPF (0-6); UROBILINOGEN, URINE AUTO 0.2 mg/dL (0.0-2.0); WBC, URINE AUTO 1 /HPF (0-3)
[2024-11-25 10:09] LABS: ALBUMIN 3.7 G/DL (3.2-5.2); BILIRUBIN,DIRECT 0.1 MG/DL (<0.4); BILIRUBIN,TOTAL 0.4 MG/DL (0.3-1.2); CALCIUM LEVEL 8.5 MG/DL (8.5-10.1); CREATININE FOR GFR 1.42 MG/DL (0.70-1.30); GLOMERULAR FILTRATION RATE 59.8 (>56); POTASSIUM SERUM 4.1 MMOL/L (3.5-5.1); TOTAL PROTEIN 6.8 G/DL (5.7-8.2)
[2024-11-25 11:58] VITALS: TEMP 96.7
[2024-11-25] MEDS ORDERED: MORPHINE 4 MG/ML 1ML VIAL IM ONE (12:50)
[2024-11-25] MEDS ORDERED: KETO10TAB PO (12:57)
[2024-11-25] MEDS ORDERED: FLOM0.4C39 PO (12:57)
[2024-11-25] MEDS: TAMSULOSIN 0.4 MG CAP PO ONE (13:06)
[2024-11-25] MEDS: MORPHINE 4 MG/ML 1ML VIAL IV ONE (13:06)
[2024-11-25 13:08] VITALS: BP 175/96; O2SAT 96
== END 2024-11-25 13:20 | disposition home or self-care (01) ==
LOC: EDBD 08:40 → M ED 08:40 → EDUNIT# 08:40 → M ED 13:20
DX: N13.2 Hydronephrosis with renal and ureteral calculous obstruction (principal); Z87.442 Personal history of urinary calculi; I10 Essential (primary) hypertension; K57.90 Diverticulosis of intestine, part unspecified, without perforation or abscess without bleeding; K40.20 Bilateral inguinal hernia, without obstruction or gangrene, not specified as recurrent; Z79.899 Other long term (current) drug therapy

== ENCOUNTER → 2024-12-19 | Outpatient (CLI) | payer MEDICARE ==
[~2024-12-19] MED LIST changes: +AMLO1TAB25 PO; +KETO10TAB PO; +ROZE8TAB16 PO; +TAMS-18 PO
== END ==
LOC: M PLAIMG 08:32
PROVIDERS: ATTEND Nurse Practitioner Family
DX: N13.2 Hydronephrosis with renal and ureteral calculous obstruction (principal); R16.1 Splenomegaly, not elsewhere classified; K57.90 Diverticulosis of intestine, part unspecified, without perforation or abscess without bleeding; I71.43 Infrarenal abdominal aortic aneurysm, without rupture; M16.11 Unilateral primary osteoarthritis, right hip; Z96.642 Presence of left artificial hip joint